=== PATIENT | female | born 1960 | race Caucasian/White ===

== ENCOUNTER 2017-05-17 18:13 | Emergency (ER) | payer MEDICARE, MEDICAID, SELFPAY ==
[2017-05-17 18:14] VITALS: BP 133/84; PULSE 85; RESP 16; TEMP 36.1; O2SAT 97; BMI 34.0
[2017-05-17 19:21] VITALS: BP 139/97; PULSE 77; RESP 14; O2SAT 97
[2017-05-17] MEDS: Ketorolac 30 MG/ML Syringe IV (20:09)
[2017-05-17] MEDS: 0.9% Normal Saline 1,000 ML 999 ML IV (20:09)
[2017-05-17] MEDS: proCHLORPERazine 10 MG/2 ML Vial IV (20:09)
[2017-05-17] MEDS: DiphenhydrAMINE 50 MG/ML Syringe IV (20:09)
--- NOTE | 2017-05-17 20:10 | CT_ITS ---
STUDY: CT BRAIN WITHOUT CONTRAST REASON FOR EXAM: Female, 56 years old. Headache RADIATION DOSAGE (If Supplied By Facility): CTDIvol = ( 44.99 ) mGy, DLP = ( 734.24 ) mGycm TECHNIQUE: Transaxial CT imaging of the brain was performed without administration of intravenous contrast material. Individualized dose optimization techniques were used for this CT. COMPARISON: None. FINDINGS: Normal soft tissue structures. Normal calvarium. Normal size ventricles and extra-axial spaces for the patient's age. Normal white matter tracts of the cerebral hemispheres. Normal basal ganglia and thalami. Normal brainstem. Normal cerebellum. There is no intracranial hemorrhage. There are no findings of an acute ischemic infarction. Air-fluid level right maxillary sinus. CT/Brain/Head without Contrast IMPRESSION: Acute right maxillary sinusitis. Otherwise no acute intracranial disease. Electronically Signed: Loc Oseguera MD at 20:45 EST , Service support ,
[2017-05-17 21:06] VITALS: BP 125/70; PULSE 75; RESP 14; O2SAT 98
--- NOTE | 2017-05-17 21:06 | ED.VISSUMM ---
- ER Visit Summary Date of Service: 05/17/17 Chief Complaint: Headache History of Present Illness: The patient is a [address] Matta. She reports that she has a headache began 5 days ago. Is gradually gotten worse. It is a sharp pain that is diffuse over her head. Is 10 out of 10 at worst and 7 out of 10 currently. It is worsened by sound or light. It is relieved by being by myself. She also reports that she has a nonproductive cough that began 5 days ago. She denies any fever or difficulty breathing. Physical Examination: Vitals: Stable. Afebrile. General: Well-nourished and well-developed. Head: Normocephalic atraumatic. Neck: Supple, no lymphadenopathy. No JVD. Nontender. Cardiovascular: Regular rate and rhythm. No murmurs. Respiratory: No respiratory distress. Clear to auscultation bilaterally. Abdominal: Soft, nontender, nondistended, normal bowel sounds. No guarding, rebound, or peritoneal signs. Back: Nontender. Extremities: Nontender, no edema. Skin: Normal color, no rash. Neurologic: Alert and oriented ?3. Cranial nerves II through XII are intact. Normal strength and sensation. Psych: Normal affect. Test Results: CT brain shows right maxillary sinusitis and is otherwise normal. Emergency Department Course and Treatment: Patient was treated Toradol, Benadryl, Compazine IV. She reports her headache is resolved. Treatment Plan: I discussed the CT finding of sinusitis. Patient does not want to be placed on antibiotics. I feel it is a very reasonable course of action. She will be discharged with Zyrtec-D and instructed to follow-up Dr. Matta in 1 week if not improving. Disposition: To home in improved and stable condition. Impression: 1. Cephalgia. 2. Right maxillary sinusitis. This note was generated with [employer] dictation software. It may contain incorrect words, spelling, and punctuation that were not noted in review of the chart prior to signing ED Disposition - Plan for ED Patient: Disposition: Home or Assisted Living Chief Complaint: Headache Instructions: ED Headache Sinus Prescriptions: Cetirizine HCl/Pseudoephedrine [Zyrtec-D Tablet] 1 each PO DAILY #14 tab.er.12h Naproxen [Naprosyn] 500 mg PO BID PRN #20 tablet Referrals: Colt Matta MD [Primary Care Provider] - 1 Week if not improving
--- NOTE | 2017-05-17 21:20 | ED.DCSUM_ITS ---
- ER Visit Summary Date of Service: 05/17/17 Chief Complaint: Headache History of Present Illness: The patient is a [address] Matta. She reports that she has a headache began 5 days ago. Is gradually gotten worse. It is a sharp pain that is diffuse over her head. Is 10 out of 10 at worst and 7 out of 10 currently. It is worsened by sound or light. It is relieved by being by myself. She also reports that she has a nonproductive cough that began 5 days ago. She denies any fever or difficulty breathing. Physical Examination: Vitals: Stable. Afebrile. General: Well-nourished and well-developed. Head: Normocephalic atraumatic. Neck: Supple, no lymphadenopathy. No JVD. Nontender. Cardiovascular: Regular rate and rhythm. No murmurs. Respiratory: No respiratory distress. Clear to auscultation bilaterally. Abdominal: Soft, nontender, nondistended, normal bowel sounds. No guarding, rebound, or peritoneal signs. Back: Nontender. Extremities: Nontender, no edema. Skin: Normal color, no rash. Neurologic: Alert and oriented ?3. Cranial nerves II through XII are intact. Normal strength and sensation. Psych: Normal affect. Test Results: CT brain shows right maxillary sinusitis and is otherwise normal. Emergency Department Course and Treatment: Patient was treated Toradol, Benadryl , Compazine IV. She reports her headache is resolved. Treatment Plan: I discussed the CT finding of sinusitis. Patient does not want to be placed on antibiotics. I feel it is a very reasonable course of action. She will be discharged with Zyrtec-D and instructed to follow-up Dr. Matta in 1 week if not improving. Disposition: To home in improved and stable condition. Impression: 1. Cephalgia. 2. Right maxillary sinusitis. This note was generated with [employer] dictation software. It may contain incorrect words, spelling, and punctuation that were not noted in review of the chart prior to signing ED Disposition - Plan for ED Patient: Disposition: Home or Assisted Living Chief Complaint: Headache Instructions: ED Headache Sinus Prescriptions: Cetirizine HCl/Pseudoephedrine [Zyrtec-D Tablet] 1 each PO DAILY #14 tab.er.12h Naproxen [Naprosyn] 500 mg PO BID PRN #20 tablet Referrals: Colt Matta MD [Primary Care Provider] - 1 Week if not improving
[2017-05-17 21:51] VITALS: BP 130/87; PULSE 79; RESP 28; O2SAT 95
== END 2017-05-17 21:51 | disposition home or self-care (01) ==
PROVIDERS: Emergency Provider Emergency Medicine; Family Provider Family Medicine; PCP Family Medicine
DX: R51 Headache (principal); J32.0 Chronic maxillary sinusitis; Z72.0 Tobacco use
CPT/HCPCS: 70450; 96361; 96374; 96375; 99283; J7030

== ENCOUNTER → 2019-11-30 06:05 | Outpatient (CLI) | payer MEDICARE, MEDICAID, SELFPAY ==
--- NOTE | 2019-12-01 12:58 | STRESSREP_ITS ---
Stress Test Report Date: 12/01/2019 Procedure: Pharmacologic stress nuclear imaging study Indications: Chest pain Consent: Per the patient Procedure: The patient underwent pharmacologic (Regadenoson) evaluation with a peak heart rate of 96 beats per minute (58%predicted maximal heart rate) and a peak blood pressure of 142/88 mmHg. The baseline ECG demonstrated normal sinus rhythm. EKG during lexiscan infusion revealed no significant ischemic changes. EKG post infusion revealed no significant ischemic changes. [There were no cardiac dysrhythmias pretest, during pharmacologic infusion, or recovery]. [There was no complaint of chest discomfort during pharmacologic infusion or recovery]. The examination was discontinued secondary to completion of protocol. Impression: 1. Lexiscan stress test test is negative for Lexiscan infusion induced EKG changes of ischemia. 2. Lexiscan stress test test is is negative for Lexiscan infusion induced chest pain. 3. Results of the nuclear portion of the test is as below Myocardial perfusion imaging study: Technique: The patient was injected with 11.6 millicuries of technetium 99m Cardiolite and subsequently rest SPECT Cardiolite nuclear imaging was obtained in the horizontal long, vertical long, and short axis views. The patient underwent pharmacologic (Regadenoson) evaluation. Please see above for details. The patient was injected with 33.2 millicuries of technetium 99m Cardiolite and subsequently stress SPECT Cardiolite nuclear imaging was obtained in the horizontal long, vertical long, and short axis views. A gated Cardiolite study at peak stress was obtained. Interpretation: Rest and stress SPECT Cardiolite nuclear imaging status post realignment, normalization, and attenuation correction demonstrate normal myocardial radioisotope uptake on the rest images after attenuation correction. On the stress images there is mild decrease in the radioisotope uptake in the apex on both the attenuation corrected and non-attenuation corrected images. These findings are suggestive of mild apical ischemia. Gated images reveal no significant regional wall motion abnormalities. The reported LVEF is 65%. Impression: 1. There is no evidence of significant ischemia or infarction. 2. Estimated ejection fraction is 65%. This note was generated with [employer] software. It may contain incorrect words, spelling, and punctuation that were not noted in checking the note before signing.
== END ==
PROVIDERS: PCP Family Medicine; Visit Provider Family Medicine
DX: R07.9 Chest pain, unspecified (principal)
CPT/HCPCS: 78452; 93017; A9500; A4216; J2785

== ENCOUNTER 2020-08-07 20:46 | Emergency (ER) | payer MEDICARE, SELFPAY ==
[2020-08-07 20:47] VITALS: BP 158/102; PULSE 101; RESP 20; TEMP 38; O2SAT 94; BMI 36.0
--- NOTE | 2020-08-07 21:06 | EKG12_ITS ---
Test Reason : DYSRHYTHMIA Blood Pressure : / mmHG Vent. Rate : 091 BPM Atrial Rate : 091 BPM P-R Int : 140 ms QRS Dur : 096 ms QT Int : 396 ms P-R-T Axes : 079 074 072 degrees QTc Int : 487 ms Normal sinus rhythm Prolonged QT Abnormal ECG Confirmed by YNES JOSEPH, SRINIVASA ([id number]), editorial director KRISTINA URIARTE ([id number]) on 08/08/2020 11:32:53 AM Referred By: HAN Confirmed By:SRINIVASA QUICK MD
--- NOTE | 2020-08-07 21:08 | EDS_ITS ---
HPI History of Present Illness Chief Complaint: Shortness of Breath Onset/Context/Timing Onset: Yesterday Context: gradual Timing: Continuous Quality: Positive for Dyspnea on exertion Worsened by: Exertion Relieved by: Rest Associated Symptoms cough, fever and subjective; Negative for rhinorrhea, ear pain or sore throat Chest Pain: Positive for None Narrative Narrative: Patient presents with shortness of breath that has been getting worse since last evening. Patient states it is worse whenever she exerts herself and better with rest. Patient states she has having a cough with some moist sputum. Patient states she does not look at the sputum to do what color it is. Patient admits to subjective fevers but did not take her temperature at home. Patient denies any chest pain, rhinorrhea, sore throat, or ear pain. Patient states she has a history of COPD and states this feels somewhat similar to prior COPD flareups. Patient denies any PE risk factors. PE Risk Factors: Negative for Cancer, OCP + Smoking + > 35, Prior DVT or PE, Recent immobilization, Recent surgery and Recent travel [facility] Medical History (Updated 08/07/20 @ 22:[address] David Negrete DO) Anxiety COPD (chronic obstructive pulmonary disease) GERD (gastroesophageal reflux disease) Hypertension Home Medications albuterol sulfate 2 puff INHALATION Q4H PRN PRN 08/07/20 [History Last Taken Unknown] cholecalciferol (vitamin D3) 1,000 unit PO DAILY 08/07/20 [History Last Taken Unknown] etodolac 400 mg PO TID PRN 08/07/20 [History Last Taken Unknown] fluticasone propionate 2 spray INTRANASAL DAILY 08/07/20 [History Last Taken Unknown] fluticasone propionate [Flovent HFA] 2 puff INHALATION BID 08/07/20 [History Last Taken Unknown] omeprazole 20 mg PO DAILY 08/07/20 [History Last Taken Unknown] Allergy/AdvReac Type Severity Reaction Status Date / Time morphine Allergy Itching Verified 08/07/20 20:47 Surgical History History of appendectomy History of section History of cholecystectomy History of lithotripsy History of surgery on left wrist Social History Smoking Status: Current every day smoker tobacco type: cigarettes ROS ROS ED Constitutional Constitutional ED: Reports fever(s); Denies chills Eyes Eyes: Denies blurry vision or change in vision ENT ENT ED: Denies rhinorrhea or sore throat Cardiovascular Cardiovascular: Denies chest pain or palpitations Respiratory/Chest Respiratory/Chest: Reports cough and dyspnea Gastrointestinal Gastrointestinal: Reports nausea; Denies vomiting Genitourinary Genitourinary ED: Denies dysuria or hematuria Musculoskeletal Musculoskeletal: Reports back pain and neck pain Integumentary Denies abscess or rash Neurologic Neurologic: Denies headache(s) or weakness Allergic/Immunologic Allergic/Immunologic ED: Denies mouth swelling or urticaria EXAM Physical Exam Const Vital Signs: 08/07/20 20:47 08/07/20 21:16 08/07/20 21:23 Temperature 100.4 F H Temperature Source Temporal Pulse Rate 101 H 79 90 Respiratory Rate 20 H 22 H 22 H Respiratory Effort Respiratory Depth Respiratory Pattern Tachypnea Blood Pressure 158/102 H 156/96 H Blood Pressure Mean 120 116 Pulse Ox 94 96 Oxygen Delivery Method Room Air Room Air 08/07/20 21:24 08/07/20 22:00 Temperature Temperature Source Pulse Rate 90 Respiratory Rate 22 H Respiratory Effort Normal Non-Labored Respiratory Depth Normal Respiratory Pattern Normal Blood Pressure 155/92 H Blood Pressure Mean 113 Pulse Ox 96 Oxygen Delivery Method Room Air Positive well nourished, well developed, obese and unkempt General Appearance ED: unkempt and well developed Nutritional Appearance: obese HEENT Reports moist mucous membranes Neck supple and no JVD Resp normal respiratory effort Auscultation: wheezes Cardio regular rate and regular rhythm GI non-tender and non-distended Auscultation: normoactive bowel sounds Palpation: soft Neuro oriented x3, CN's II-XII intact bilaterally and no sensory deficits noted Sensorium / Orientation: alert Motor Exam: strength 5/5 throughout Psych mental status grossly normal Appearance: unkempt MDM MDM MDM Narrative Medical decision making narrative: Patient was given a DuoNeb aerosol. Patient felt better after this. EKG was obtained. On my interpretation, it showed a normal sinus rhythm with a rate of 91. VT interval and QRS interval were all normal. QTc interval was slightly prolonged at 487 ms. Hammond was normal. There are no acute ST or T wave changes. Portable 1 view chest x-ray was obtained. On my interpretation, lung butts are clear. There is normal cardiac silhouette. Bony thorax is normal. There is no acute process noted. Radiologist also interpreted the x-ray and agrees. CBC and comprehensive metabolic profile were obtained and were essentially within normal limits. There is mild anemia with a hemoglobin of 11.1 and hematocrit 36.7. Troponin was normal. COVID-19 rapid antigen was obtained and was negative. Patient is feeling better on reev aluation. Patient was instructed to continue her inhalers as previously prescribed. Patient was instructed to follow-up with her primary care physician in 5 to 7 days. Patient understood and was agreeable with the plan. All questions were answered. Lab Data Attestation: I reviewed the patient's lab results. Labs: Laboratory Results - last 24 hr 08/07/20 08/07/20 21:20 21:20 WBC 10.4 RBC 4.61 Hgb 11.1 L Hct 36.7 L MCV 79.6 L MCH 24.1 L MCHC 30.2 L RDW Std Deviation 47.9 H RDW Coeff of Honey 16.6 H Plt Count 272 MPV 9.7 Immature Gran % (Auto) 0.500 Neut % (Auto) 80.8 H Lymph % (Auto) 8.0 L Ransom % (Auto) 9.0 Eos % (Auto) 1.5 Baso % (Auto) 0.2 Absolute Neuts (auto) 8.4 H Absolute Lymphs (auto) 0.83 Nucleated RBC % 0 Sodium 136 Potassium 4.0 Chloride 104 Carbon Dioxide 28.0 Anion Gap 4 L BUN 11 Creatinine 0.92 Estim Creat Clear Calc 57.56 Est GFR (MDRD) Af Amer 81 Est GFR (MDRD) Non-Af 67 BUN/Creatinine Ratio 11.9 Glucose 113 H Calcium 9.0 Total Bilirubin 0.50 AST 19 ALT 18 Alkaline Phosphatase 108 Troponin I < 0.015 Total Protein 7.1 Albumin 3.5 Globulin 3.6 Albumin/Globulin Ratio 1.0 Radiography Chest X-Ray - ED: 1 View, Read by ED Physician, Read by Radiologist and Normal Diagnostic Testing: Radiology Impression Chest X-Ray 08/07/20 21:33 IMPRESSION: No radiographic evidence of acute cardiopulmonary disease. at 2213 Reported and signed by: Zachariah Zapata MD Electronically Signed: Zachariah Zapata MD at 22:12 EDT Tel , Service support , EKG Initial EKG: Attestation: I personally reviewed and interpreted this EKG as follows: Interpretation: Sinus Rhythm (91) and No Acute Injury Pattern Prior EKG tracings: available for review Prior: Unchanged (10/02/2014) Discharge Plan Triage Chief Complaint: Shortness of Breath ED Provider: David Negrete Dx/Rx/DC Orders Clinical Impression: COPD (chronic obstructive pulmonary disease) Instructions: ED COPD Flare Prescriptions: No Action Flovent HFA 44 mcg/actuation HFA aerosol inhaler 2 puff INHALATION BID RF: 0 omeprazole 20 mg capsule,delayed release(DR/EC) 20 mg PO DAILY RF: 0 etodolac 400 mg tablet 400 mg PO TID PRN (Reason: Pain) RF: 0 albuterol sulfate 90 mcg/actuation HFA aerosol inhaler 2 puff INHALATION Q4H PRN PRN (Reason: Wheezing) RF: 0 fluticasone propionate 50 mcg/actuation spray,suspension 2 spray INTRANASAL DAILY RF: 0 cholecalciferol (vitamin D3) 25 mcg (1,000 unit) tablet 1,000 unit PO DAILY RF: 0 Primary Care Provider: Colt Matta Referrals: Colt Matta MD [Primary Care Provider] - 3-5 Days Disposition Disposition: Home, self care
[2020-08-07 21:16] VITALS: PULSE 79; RESP 22
[2020-08-07] MEDS: Ipratropium/Albuterol Sulfate 3 ML AMPUL.NEB INHALATION (21:16)
[2020-08-07 21:23] VITALS: BP 156/96; PULSE 90; RESP 22; O2SAT 96
[2020-08-07 21:24] VITALS: O2SAT 96
[2020-08-07 21:29] LABS: Absolute Lymphocyte Count 0.83 X10^3/uL (0.83-4.51); Absolute Neutrophil Count 8.4 X10^3/uL (2.0-7.7); Basophil# 0.02 X10^3/uL; Basophil% 0.2 % (0-1); Eosinophil# 0.16 X10^3/uL; Eosinophils% 1.5 % (0-5); Hematocrit 36.7 % (37-47); Hemoglobin 11.1 g/dL (12.0-15.0); Lymphocyte # 0.83 X10^3/ul (0.83-4.51); Mean Corp Hgb Conc 30.2 g/dL (32-36); Mean Corpuscular Hgb 24.1 pg (27.0-32.0); Mean Corpuscular Volume 79.6 fL (81-99); Mean Platelet Vol. 9.7 fl (6.2-12.0); Monocyte# 0.94 X10^3/uL; NRBC Flagged by Analyzer 0 % (0-5); Neutrophil # 8.44 X10^3/uL (2.7-7.7); Neutrophil % 80.8 % (47-70); Platelet Count 272 K/mm3 (150-450); RBC Distribution Width CV 16.6 % (11.6-14.6); RBC Distribution Width SD 47.9 fl (35.1-43.9); Red Blood Count 4.61 M/mm3 (4.2-5.4); White Blood Count 10.4 K/mm3 (4.4-11.0)
--- NOTE | 2020-08-07 21:33 | RAD_ITS ---
HISTORY: Cough EXAMINATION/TECHNIQUE: XR Chest 1 View: Portable upright AP chest x-ray COMPARISON: 10/02/14 FINDINGS: LINES/DEVICES: None. LUNGS: No consolidation, edema or effusion. No pneumothorax. MEDIASTINUM AND CARDIOVASCULAR STRUCTURES: Cardiac silhouette not enlarged. Central airways and mediastinal contour are unremarkable. BONES AND SOFT TISSUES: No acute bony abnormalities. RAD/Chest 1 View (Portable) IMPRESSION: No radiographic evidence of acute cardiopulmonary disease. at 2213 Reported and signed by: Zachariah Zapata MD Electronically Signed: Zachariah Zapata MD at 22:12 EDT Tel , Service support ,
[2020-08-07 21:54] LABS: AST(SGOT) 19 U/L (15-37); Alanine Aminotransfer ALT/SGPT 18 U/L (13-56); Albumin, Serum 3.5 g/dL (3.2-5.0); Alkaline Phosphatase 108 U/L (45-117); Anion Gap 4 (5-15); BUN 11 mg/dL (7-18); BUN/Creat Ratio 11.9 RATIO (10-20); Chloride 104 mmol/L (98-107); Creatinine, Serum 0.92 mg/dL (0.55-1.02); EST Glomerular Filtration Rate 67 mL/min (>60); Est Glom Filt Rate - Afr Amer 81 mL/min (>60); Estimated Creatinine Clearance 57.56 ml/min; Globulin 3.6 g/dL (2.2-4.2); Glucose 113 mg/dL (74-106); Protein, Total 7.1 g/dL (6.4-8.2); Sodium Level 136 mmol/L (136-145)
[2020-08-07 22:00] VITALS: BP 155/92; PULSE 90; RESP 22; O2SAT 96
[2020-08-07 22:47] VITALS: BP 152/86; PULSE 89; RESP 19; TEMP 36.8; O2SAT 97
== END 2020-08-07 22:48 | disposition home or self-care (01) ==
PROVIDERS: Emergency Provider Emergency Medicine; PCP Family Medicine
DX: J44.9 Chronic obstructive pulmonary disease, unspecified (principal); E66.9 Obesity, unspecified; F17.210 Nicotine dependence, cigarettes, uncomplicated; K21.9 Gastro-esophageal reflux disease without esophagitis; Z79.899 Other long term (current) drug therapy; Z79.51 Long term (current) use of inhaled steroids
CPT/HCPCS: 71045; 80053; 84484; 85025; 87426; 93005; 94640; 99283; A4216

== ENCOUNTER 2021-02-21 15:42 | Emergency (ER) | payer MEDICARE, MEDICAID, SELFPAY ==
[2021-02-21 15:43] VITALS: BP 154/89; PULSE 86; RESP 18; TEMP 36; O2SAT 94; BMI 31.6
--- NOTE | 2021-02-21 15:57 | RAD_ITS ---
STUDY: X-RAY CHEST REASON FOR EXAM: Female, 60 years old. Cough, congestion, headache TECHNIQUE: AP COMPARISON: 08/07/2020 FINDINGS: The lungs are clear and expanded. There is no demonstrated pleural abnormality. Normal size heart. Normal mediastinum and kinza. Normal visualized pulmonary arteries. Normal visualized aortic arch and descending thoracic aorta. Normal visualized thoracic spine. Normal visualized ribs, clavicles, and shoulders. There is no demonstrated abnormality of the visualized soft tissue structures of the upper abdomen. RAD/Chest 1 View (Portable) IMPRESSION: Nonacute portable x-ray examination of the chest. Electronically Signed: Hong Moore MD ([place]) at 16:14 EST , Service support ,
[2021-02-21 16:17] VITALS: O2SAT 97
--- NOTE | 2021-02-21 17:13 | EDS_ITS ---
HPI History of Present Illness Chief Complaint: Shortness of Breath Onset/Context/Timing Onset: Today Context: gradual Timing: Continuous Quality: Positive for Dyspnea on exertion Worsened by: Exertion Relieved by: Rest Associated Symptoms cough, rhinorrhea and sore throat; Negative for ear pain, fever, chills, sweats, clear sputum, white sputum, yellow sputum or green sputum Chest Pain: Positive for None Narrative Narrative: Patient presents with shortness of breath that became worse today. Patient states it is gradually gotten worse. Patient states her breathing is worse with any exertion. Patient states it is better with rest. Patient states she has been having cough and congestion and cold symptoms for the past month. Patient denies any sputum production with her cough. Patient admits to some rhinorrhea and a sore throat. Patient denies any fevers or chills. Patient denies any chest pain. Patient denies any known exposures to COVID-19. Patient has not been vaccinated against COVID-19. [facility] Medical History Anxiety COPD (chronic obstructive pulmonary disease) GERD (gastroesophageal reflux disease) Hypertension Home Medications albuterol sulfate 2 puff INHALATION Q4H PRN PRN 08/07/20 [History Last Taken Unknown] cholecalciferol (vitamin D3) 1,000 unit PO DAILY 08/07/20 [History Last Taken Unknown] etodolac 400 mg PO TID PRN 08/07/20 [History Last Taken Unknown] fluticasone propionate 2 spray INTRANASAL DAILY 08/07/20 [History Last Taken Unknown] fluticasone propionate [Flovent HFA] 2 puff INHALATION BID 08/07/20 [History Last Taken Unknown] omeprazole 20 mg PO DAILY 08/07/20 [History Last Taken Unknown] lisinopril 2.5 mg PO DAILY 02/21/21 [History Last Taken Unknown] Allergy/AdvReac Type Severity Reaction Status Date / Time morphine Allergy Itching Verified 02/21/21 15:43 Surgical History History of appendectomy History of section History of cholecystectomy History of lithotripsy History of surgery on left wrist Social History Smoking Status: Current every day smoker tobacco type: cigarettes ROS ROS ED Constitutional Constitutional ED: Denies chills or fever(s) Eyes Eyes: Denies blurry vision or change in vision ENT ENT ED: Reports rhinorrhea and sore throat Cardiovascular Cardiovascular: Denies chest pain or palpitations Respiratory/Chest Respiratory/Chest: Reports cough and dyspnea Gastrointestinal Gastrointestinal: Denies nausea or vomiting Genitourinary Genitourinary ED: Denies dysuria or hematuria Musculoskeletal Musculoskeletal: Reports back pain; Denies neck pain Integumentary Denies abscess or rash Neurologic Neurologic: Reports headache(s); Denies weakness Allergic/Immunologic Allergic/Immunologic ED: Denies mouth swelling or urticaria EXAM Physical Exam Const Vital Signs: 02/21/21 15:43 02/21/21 16:17 02/21/21 16:24 Temperature 96.8 F L Temperature Source Temporal Pulse Rate 86 Respiratory Rate 18 Respiratory Effort Non-Labored Respiratory Depth Normal Respiratory Pattern Normal Blood Pressure 154/89 H Blood Pressure Mean 110 Pulse Ox 94 97 Oxygen Delivery Method Room Air Nasal Cannula Oxygen Flow Rate (L/min) 2 Positive well nourished and well developed General Appearance ED: well developed HEENT Reports moist mucous membranes Neck supple and no JVD Resp normal respiratory effort Auscultation: rhonchi throughout Cardio regular rate, regular rhythm and no murmurs GI normal to inspection, nondistended, normoactive bowel sounds and non-tender Palpation: soft Extremity normal to inspection General Extremety ED: Negative for edema or tenderness General Extremity: Negative for edema Neuro oriented x3, CN's II-XII intact bilaterally and no sensory deficits noted Sensorium / Orientation: alert Motor Exam: strength 5/5 throughout Psych mental status grossly normal Skin no rashes or lesions noted MDM MDM MDM Narrative Medical decision making narrative: Portable 1 view chest x-ray was obtained. On my interpretation, lung butts are clear. There is normal cardiac silhouette. Bony thorax is normal. There is no acute process noted. Radiologist also interpreted the x-ray and agrees. COVID-19 rapid antigen was obtained and was negative. Patient was advised of her findings. Patient was advised that this is most likely a viral upper respiratory infection. Patient was instructed to drink plenty of fluids. Patient was instructed to take Tylenol or ibuprofen as needed for pain. Patient understood and was agreeable with the plan. All questions were answered. Radiography Diagnostic Testing: Clinical Impression(s) from Imaging Studies Chest X-Ray 02/21/21 15:57 IMPRESSION: Nonacute portable x-ray examination of the chest. Electronically Signed: Hong Moore MD ([place]) at 16:14 EST , Service support , Discharge Plan Triage Chief Complaint: Shortness of Breath ED Provider: David Negrete Dx/Rx/DC Orders Clinical Impression: Viral URI Instructions: ED URI, Viral, No Abx (Adult) Prescriptions: No Action Flovent HFA 44 mcg/actuation HFA aerosol inhaler 2 puff INHALATION BID RF: 0 omeprazole 20 mg capsule,delayed release(DR/EC) 20 mg PO DAILY RF: 0 etodolac 400 mg tablet 400 mg PO TID PRN (Reason: Pain) RF: 0 albuterol sulfate 90 mcg/actuation HFA aerosol inhaler 2 puff INHALATION Q4H PRN PRN (Reason: Wheezing) RF: 0 fluticasone propionate 50 mcg/actuation spray,suspension 2 spray INTRANASAL DAILY RF: 0 cholecalciferol (vitamin D3) 25 mcg (1,000 unit) tablet 1,000 unit PO DAILY RF: 0 lisinopril 5 mg tablet 2.5 mg PO DAILY RF: 0 Primary Care Provider: Colt Matta Referrals: Colt Matta MD [Primary Care Provider] - 3-5 Days Disposition Disposition: Home, Self Care
[2021-02-21 18:17] VITALS: RESP 18; O2SAT 96
== END 2021-02-21 18:17 | disposition home or self-care (01) ==
PROVIDERS: Emergency Provider Emergency Medicine; PCP Family Medicine
DX: J06.9 Acute upper respiratory infection, unspecified (principal); F17.210 Nicotine dependence, cigarettes, uncomplicated; J44.9 Chronic obstructive pulmonary disease, unspecified; I10 Essential (primary) hypertension; K21.9 Gastro-esophageal reflux disease without esophagitis; Z79.899 Other long term (current) drug therapy; Z79.51 Long term (current) use of inhaled steroids
CPT/HCPCS: 71045; 87426; 94760; 99282

== ENCOUNTER → 2022-05-26 | Outpatient (CLI) | payer MEDICARE, SELFPAY ==
--- NOTE | 2022-05-26 17:22 | CT_ITS ---
STUDY: LOW DOSE CT LUNG CANCER SCREENING REASON FOR EXAM: Female, 62 years old. Long-term smoking history RADIATION DOSAGE (If Supplied By Facility): CTDIvol = ( 2.39 ) mGy, DLP = ( 81.01 ) mGycm TECHNIQUE: No contrast was administered. Low dose technique was utilized (average mAS-38 and kVp 120). 1.25 mm axial source images with a slice interval of 1.25-mm were reconstructed in lung windows. 2.5 mm axial source images with a slice interval of 2.5-mm were reconstructed in lung windows. 5.0 mm axial source images with a slice interval of 5.0-mm were reconstructed in soft tissue windows. COMPARISON: Previous plain films FINDINGS: Lung windows show the lungs to be mildly hyperexpanded. Chronic interstitial changes noted in both lung butts without organized infiltrate, effusion, or suspicious noncalcified mass or nodule. Limited soft tissue windows show normal-appearing thyroid. No suspicious axillary, mediastinal, or perihilar adenopathy. No thoracic aortic aneurysm. There are calcified coronary vessels. Bony structures show degenerative change. Limited cuts through the upper abdomen do not show suspicious abnormality CT/Low Dose CT Lung Screening IMPRESSION: Lung-RADS category 2 - Continue annual screening with LDCT in 12 months. IMPORTANT NOTES FOR USE: ACR Lung-RADS Version 1.1 Assessment Categories Release Date: 2018 Category: Coded 0-4 bases on nodule(s) with highest degree of suspicion. Negative screen is defined as categories 1 and 2; a positive screen is defined as categories 3 and 4. Category 3 and 4A nodules that are unchanged on interval CT should be coded as category 2, and individuals returned to screening in 12 months. Category 4X: Category 3 or 4 nodules with additional imaging findings that increase the suspicion of lung cancer, such as spiculation, GGN that doubles in size in 1 year, enlarged lymph notes, etc. Category Modifiers: S (significant finding unrelated to lung cancer) Electronically Signed: Johnson Donald MD at 8:45 EDT ,
== END | disposition home or self-care (01) ==
LOC: CT 17:22
PROVIDERS: PCP Family Medicine
DX: F17.210 Nicotine dependence, cigarettes, uncomplicated (principal)
CPT/HCPCS: 71271

== ENCOUNTER 2022-09-01 14:44 | Emergency (ER) | payer MEDICARE, MEDICAID, SELFPAY ==
[2022-09-01 14:46] VITALS: BP 143/102; PULSE 110; RESP 24; TEMP 35.9; O2SAT 97
[2022-09-01 14:48] VITALS: BMI 34.9
--- NOTE | 2022-09-01 15:28 | EX.ED.GENINJ ---
HPI History of Present Illness Chief Complaint: Shortness of Breath Detail of Chief Complaint: Left rib pain Informant: patient Onset/Context/Timing Onset: Days (3 days) Mechanism/Context: Fall Narrative Narrative: Patient presents secondary to fall with left-sided rib injury. She states that she was walking her dog and had the harness wrapped around her left hand. The dog started to soledad after something and pulled her down and drugged her for short distance. She is complaining of pain to the left ribs. She does have a history of COPD and reports some increased wheezing as well. [facility] Medical History Anxiety COPD (chronic obstructive pulmonary disease) GERD (gastroesophageal reflux disease) Hypertension Home Medications albuterol sulfate 90 mcg/actuation aerosol inhaler 2 puff inhalation Q4H PRN PRN Wheezing 08/07/20 [History Last Taken Unknown] cholecalciferol (vitamin D3) 25 mcg (1,000 unit) tablet 1,000 unit PO DAILY 08/07/20 [History Last Taken Unknown] etodolac 400 mg tablet 400 mg PO TID PRN Pain 08/07/20 [History Last Taken Unknown] fluticasone propionate 44 mcg/actuation HFA aerosol inhaler (Flovent HFA) 2 puff inhalation BID 08/07/20 [History Last Taken Unknown] fluticasone propionate 50 mcg/actuation nasal spray,suspension 2 spray intranasal DAILY 08/07/20 [History Last Taken Unknown] omeprazole 20 mg capsule,delayed release 20 mg PO DAILY 08/07/20 [History Last Taken Unknown] lisinopril 5 mg tablet 2.5 mg PO DAILY 02/21/21 [History Last Taken Unknown] hydrocodone-acetaminophen 5-325mg 5mg-325mg 1 tab PO Q8H PRN Pain 3 days #10 TABLETS 09/01/22 [Rx Last Taken Unknown] Allergy/AdvReac Type Severity Reaction Status Date / Time morphine Allergy Itching Verified 02/21/21 15:43 Surgical History History of appendectomy History of section History of cholecystectomy History of lithotripsy History of surgery on left wrist Social History Smoking Status: Current every day smoker tobacco type: cigarettes ROS ROS ED Constitutional Constitutional ED: Denies chills or fever(s) Eyes Eyes: Denies change in vision or discharge from eye(s) ENT ENT ED: Denies discharge from eye(s), rhinorrhea or sore throat Cardiovascular Cardiovascular: Reports chest pain; Denies palpitations Respiratory/Chest Respiratory/Chest: Reports dyspnea; Denies cough Gastrointestinal Gastrointestinal: Denies abdominal pain, diarrhea, nausea or vomiting Genitourinary Genitourinary ED: Denies difficulty urinating or dysuria Musculoskeletal Musculoskeletal: Denies back pain or extremity pain Integumentary Reports other Details: Ecchymosis right leg ; Denies Abrasions or rash Neurologic Neurologic: Denies headache(s) or weakness Psychiatric Psychiatric: Denies anxiety or depression Allergic/Immunologic Allergic/Immunologic ED: Denies lip swelling or urticaria EXAM Physical Exam Const Vital Signs: 09/01/22 14:46 09/01/22 15:09 09/01/22 15:38 Temperature 96.6 F L Temperature Source Temporal Pulse Rate 110 H 75 Respiratory Rate 24 H 18 Respiratory Effort Normal Non-Labored Respiratory Depth Normal Respiratory Pattern Normal Normal Blood Pressure 143/102 H Blood Pressure Mean 115 Pulse Ox 97 Oxygen Delivery Method Room Air Room Air 09/01/22 16:15 Temperature Temperature Source Pulse Rate 74 Respiratory Rate 20 H Respiratory Effort Respiratory Depth Respiratory Pattern Blood Pressure 135/85 H Blood Pressure Mean 101 Pulse Ox 94 Oxygen Delivery Method Room Air Positive well nourished and well developed General Appearance ED: well developed HEENT atraumatic Eyes EOMs intact bilaterally Neck full ROM Chest Wall Chest Narrative: Mild tenderness to palpation along the left lateral chest wall. No crepitus. No ecchymosis or abrasions. Resp normal respiratory effort Resp Narrative: Mild expiratory wheezes bilaterally. Cardio regular rhythm Rate: regular rate GI normal to inspection, nondistended, normoactive bowel sounds Extremity Extremity Narrative: Ecchymosis noted to the right still. No bony tenderness to this area. Neuro oriented x3, no focal motor deficits and no sensory deficits noted Skin Skin Narrative: As above MDM MDM MDM Narrative Medical decision making narrative: Patient given a dose of Stuart for pain and a DuoNeb treatment for her wheezing. Chest x-ray with rib series obtained to evaluate for fracture or pneumothorax. Radiography Diagnostic Testing: Clinical Impression(s) from Imaging Studies Ribs w/Chest X-Ray 09/01/22 15:45 IMPRESSION: Negative chest and left ribs series. Electronically Signed: Nick Webb MD at 16:07 EDT , Treatment and Re-Evaluation Narrative: Rib series with chest x-ray per mitral rotation reveals no obvious displaced rib fractures. No evidence of pneumothorax. Small area of atelectasis in the left lung base but no infiltrate. Radiology interpretation is reviewed and agrees. On repeat evaluation patient does feel improved. We discussed importance of deep breathing to help prevent further atelectasis or pneumonia. She will be given a short course of Stuart for pain. She has albuterol at home to use to help with her wheezing. Return instructions provided. Discharge Plan Triage Chief Complaint: Shortness of Breath ED Provider: Minna Patel Dx/Rx/DC Orders Clinical Impression: Contusion of rib on left side Instructions: ED Bruise, Rib Prescriptions: New hydrocodone-acetaminophen 5-325 mg tablet 1 tab PO Q8H PRN (Reason: Pain) 3 Days Qty: 10 0RF No Action Flovent HFA 44 mcg/actuation HFA aerosol inhaler 2 puff INHALATION BID Label Comments: inhale 2 puffs by mouth twice a day as directed omeprazole 20 mg capsule,delayed release(DR/EC) 20 mg PO DAILY Label Comments: take 1 capsule by mouth once daily etodolac 400 mg tablet 400 mg PO TID PRN (Reason: Pain) Label Comments: take 1 tablet by mouth three times a day if needed albuterol sulfate 90 mcg/actuation HFA aerosol inhaler 2 puff INHALATION Q4H PRN PRN (Reason: Wheezing) Label Comments: inhale 2 puffs by mouth every 4 hours if needed fluticasone propionate 50 mcg/actuation spray,suspension 2 spray INTRANASAL DAILY Label Comments: place 2 sprays into each nostril once daily cholecalciferol (vitamin D3) 25 mcg (1,000 unit) tablet 1,000 unit PO DAILY Label Comments: take 1 tablet by mouth once daily lisinopril 5 mg tablet 2.5 mg PO DAILY Label Comments: take 1/2 tablet by mouth once daily Primary Care Provider: Colt Matta Referrals: Colt Matta MD [Primary Care Provider] - 1-2 Weeks Disposition Disposition: Home, Self Care
[2022-09-01 15:38] VITALS: PULSE 75; RESP 18
[2022-09-01] MEDS: Ipratropium/Albuterol Sulfate 3 ML AMPUL.NEB INHALATION (15:40)
[2022-09-01] MEDS: HYDROcodone Bitartrate/Apap 5/325 Tablet PO (15:41)
--- NOTE | 2022-09-01 15:45 | RAD_ITS ---
EXAM: XR LEFT RIBS AND AP CHEST, 3 OR MORE VIEWS CLINICAL INDICATION: injury TECHNIQUE: Frontal and oblique views of the left ribs and frontal view of the chest. COMPARISON: 02.21.21 FINDINGS: LUNGS AND PLEURAL SPACES: Unremarkable. No consolidation or edema. No pneumothorax. No effusion. HEART: Unremarkable. Cardiac silhouette not enlarged. MEDIASTINUM: Central airways and mediastinal contour are unremarkable. BONES/JOINTS: Unremarkable. No evidence of displaced rib fractures. RAD/Ribs Uni Min 3V w/PA Chest IMPRESSION: Negative chest and left ribs series. Electronically Signed: Nick Webb MD at 16:07 EDT ,
[2022-09-01 16:15] VITALS: BP 135/85; PULSE 74; RESP 20; O2SAT 94
[2022-09-01 17:24] VITALS: BP 138/83; PULSE 79; RESP 14; O2SAT 93
== END 2022-09-01 17:25 | disposition home or self-care (01) ==
PROVIDERS: Emergency Provider Emergency Medicine; PCP Family Medicine; Visit Provider Emergency Medicine
DX: S20.212A Contusion of left front wall of thorax, initial encounter (principal); F17.210 Nicotine dependence, cigarettes, uncomplicated; W19.XXXA Unspecified fall, initial encounter
CPT/HCPCS: 71101; 94640; 99283